=== PATIENT | female | born 1955 | race Caucasian/White ===

== ENCOUNTER 2017-02-21 16:15 | Emergency (ER) | payer BC, MEDICAID ==
--- NOTE | 2017-02-21 17:48 | RAD ---
INDICATION: Left ankle injury COMPARISON: Left ankle February 19, 2014 TECHNIQUE: AP, lateral, and oblique views were obtained. FINDINGS: There are acute fractures of the fibula 2 cm cephalad to prior fixation of the old distal fibular fracture. There are also anterior tibial and medial malleolar avulsion fractures. There is diffuse soft tissues swelling. No additional findings. IMPRESSION: ACUTE FIBULAR, MEDIAL MALLEOLAR, AND ANTERIOR TIBIAL FRACTURES.
[2017-02-21] MEDS ORDERED: Acetaminop/Codeine 30 MG TAB* 1 TAB (300 MG/30 MG) PO ONE (18:05)
--- NOTE | 2017-02-21 18:07 | ED ---
Lower Extremity - HPI Summary HPI Summary: 61F presents with left ankle pain s/p twisting it when going down stairs. She has previous plate placed 3 years ago at [facility]. She denies any other injury. She denies any numbness or tingling. She has not taken anything for pain. She is unable to walk on the joint. She is not on any blood thinners. Pain is greatest on lateral aspect of ankle. - History of Current Complaint Chief Complaint: EDExtremityLower Stated Complaint: FALL Time Seen by Provider: 02/21/17 17:17 Pain Intensity: 8 - Allergies/Home Medications Allergies/Adverse Reactions: Allergies Allergy/AdvReac Type Severity Reaction Status Date / Time No Known Allergies Allergy Verified 02/21/17 16:23 PMH/Surg Hx/FS Hx/Imm Hx Endocrine/Hematology History: Denies: Hx Anticoagulant Therapy, Hx Diabetes Cardiovascular History: Reports: Hx Hypertension - ON MEDS STARTED TODAY Denies: Other Cardiovascular Problems/Disorders Respiratory History: Denies: Other Respiratory Problems/Disorders GI History: Denies: Other GI Disorders Musculoskeletal History: Denies: Other Musculoskeletal History Sensory History: Reports: Hx Cataracts - SARIKA Denies: Hx Contacts or Glasses, Hx Hearing Aid Opthamlomology History: Reports: Hx Cataracts - SARIKA Denies: Hx Contacts or Glasses Neurological History: Reports: Hx Migraine - INFREQUENT Denies: Other Neuro Impairments/Disorders Psychiatric History: Reports: Hx Anxiety - ON MEDS, Hx Depression - ON MEDS - Surgical History Surgery Procedure, Year, and Place: RIGHT CATARACT, 01/2014, [facility] [place]. HYSTERECTOMY 1997, [place]. BOWEL RESECTION 1998, [place]. Hx Anesthesia Reactions: Yes - DIFF TO WAKE UP Infectious Disease History: No Infectious Disease History: Denies: Traveled Outside the [place] in Last 30 Days - Family History Known Family History: Positive: Cardiac Disease - Social History Alcohol Use: None Substance Use Type: Reports: None Smoking Status (MU): Never Smoked Tobacco Have You Smoked in the Last Year: No Review of Systems Negative: Fever Negative: Chest Pain Negative: Shortness Of Breath Positive: Myalgia - left ankle pain All Other Systems Reviewed And Are Negative: Yes Physical Exam Triage Information Reviewed: Yes Vital Signs On Initial Exam: Initial Vitals Temp Pulse Resp BP Pulse Ox 97.6 F 69 16 150/72 100 02/21/17 16:23 02/21/17 16:23 02/21/17 16:23 02/21/17 16:23 02/21/17 16:23 Vital Signs Reviewed: Yes Appearance: Positive: Well-Appearing Skin: Positive: Warm, Dry Head/Face: Positive: Normal Head/Face Inspection Eyes: Positive: Normal, Conjunctiva Clear Respiratory/Lung Sounds: Positive: Clear to Auscultation, Breath Sounds Present Cardiovascular: Positive: Normal, RRR Musculoskeletal: Positive: Strength/ROM Intact - toes and knee, Limited @ - left ankle, Edema Left - ankle, Other - good pulses capillary refill < 2 secs Procedures - Splinting Location: left ankle Hand-Made Type: fiberglass Splint: posterior walking Pre-Proc Neuro Vasc Exam: normal Post-Proc Neuro Vasc Exam: normal Diagnostics - Vital Signs Vital Signs Temp Pulse Resp BP Pulse Ox 02/21/17 16:26 97.6 F 69 16 150/72 100 02/21/17 16:23 97.6 F 69 16 150/72 100 - Laboratory Lab Statement: Any lab studies that have been ordered have been reviewed, and results considered in the medical decision making process. Lower Extremity Course/Dx - Course Course Of Treatment: 61F presents left ankle injury s/p tripped down some stairs. had surger on ankle with dr dean at [facility] three years.do not suspect compartment syndrome at moment: good pulses, capillary refill< 2, able to move toes, xray shows acute fibualar and atnerior tibial fracture. spoke with dr lebron will see in office on and will need surgery. placed in posterior splint. warn of signs of compartment syndrome to return. patient understands and agrees with plan - Diagnoses Differential Diagnosis/HQI/PQRI: Positive: Fracture (Closed), Sprain, Strain Provider Diagnoses: Ankle fracture - Physician Notifications Discussed Care Of Patient With: dr lebron Time Discussed With Above Provider: 19:00 - will see on and place in posterior with robbie Discharge - Discharge Plan Condition: Good Disposition: HOME Prescriptions: Acetaminop/Codeine 30 MG TAB* [Tylenol/Codeine 30 MG TAB*] 1 tab PO Q6H PRN #20 tab MDD 4 PRN Reason: Pain Patient Education Materials: Ankle Fracture (ED) Referrals: Non Staff,Doctor [Primary Care Provider] - Jaime Lebron MD [Medical Doctor] - Additional Instructions: Use crutches and stay nonweight bearing Keep splint on area and keep dry Call ortho office tomorrow to set up appointment time for with dr lebron or dr howe Use ibuprofen/tyenlol for pain every 6 hours and use narcotic for breakthrough pain Ice, elevate Return to ED if develop numbness or tingling or any new or worsening symptoms
[2017-02-21 19:44] VITALS: BP 130/62
== END 2017-02-21 20:07 | disposition home or self-care (01) ==
LOC: ED 16:15
DX: S82.892A Other fracture of left lower leg, initial encounter for closed fracture (principal); W10.9XXA Fall (on) (from) unspecified stairs and steps, initial encounter; Y93.9 Activity, unspecified; Y92.9 Unspecified place or not applicable; Y99.9 Unspecified external cause status
CPT/HCPCS: 99281; A9270-GY

== ENCOUNTER 2017-02-27 10:22 | Day surgery (SDC) | payer OTHER ==
[~2017-02-27 10:22] MED LIST: Buffered Lidocaine 0.9% SYRIN* 5 ML/SYR SYRINGE INTRADERM ONE; Famotidine IV* 10 MG/ML 2 ML (20 mg) IV ONE
[2017-02-27] MEDS ORDERED: Buffered Lidocaine 0.9% SYRIN* 5 ML/SYR SYRINGE ONE (10:27)
[2017-02-27] MEDS ORDERED: ceFAZolin 2 GM PREMIX(*) 0 GM/0 ML BAG IVPB ONE (10:27)
[2017-02-27] MEDS ORDERED: Famotidine IV* 10 MG/ML 2 ML (20 mg) ONE (10:27)
[2017-02-27] MEDS ORDERED: ceFAZolin 2 GM PREMIX(*) 2 GM/50 ML BAG IVPB ONE (11:19)
[2017-02-27] MEDS ORDERED: Midazolam* 1 MG/ML 5 ML VIAL (5 MG) ONE (11:25)
[2017-02-27] MEDS ORDERED: fentaNYL* 50 MCG/ML 2 ML VIAL (100 MCG VIAL) ONE (11:25)
[2017-02-27] MEDS ORDERED: Scopolamine 1.5 mg* PATCH TRANSDERM SCH (12:00)
[2017-02-27] MEDS ORDERED: Scopolamine 1.5 mg* PATCH ONE (12:02)
[2017-02-27] MEDS ORDERED: Propofol* 10 MG/ML 20 ML BTL IV PUSH ONE (12:04)
[2017-02-27] MEDS ORDERED: Lidocaine 2% PF * 5 ML VIAL ONE (12:04)
[2017-02-27] MEDS ORDERED: Ketorolac INJ* 30 MG/ML 1 ML VIAL ONE (12:04)
[2017-02-27] MEDS ORDERED: Ondansetron INJ* 2 MG/ML VIAL ONE (12:04)
[2017-02-27] MEDS ORDERED: DiMENhydriNATE IV* 50 MG/ML VIAL ONE (12:04)
[2017-02-27] MEDS ORDERED: Dexamethasone IV* 4 MG/ML 1 ML (4 MG) ONE (12:04)
[2017-02-27] MEDS ORDERED: Bupivacaine 0.5% SDV PF* 30 ML VIAL ONE (12:38)
[2017-02-27] MEDS ORDERED: HYDROmorphone* 1 MG/ML 1 ML SYR ONE ×2 (13:26→15:28)
[2017-02-27] MEDS ORDERED: oxyCODONE/Acetamin 5/325 MG* TAB PO PRN (14:49)
[2017-02-27] MEDS ORDERED: DiMENhydriNATE IV* 50 MG/ML VIAL IV PUSH PRN (14:49)
[2017-02-27] MEDS ORDERED: Acetaminop/Codeine 30 MG TAB* 1 TAB (300 MG/30 MG) ONE (15:24)
[2017-02-27] MEDS: HYDROmorphone* 1 MG/ML 1 ML SYR IV PRN ×3 (15:28→15:53)
[2017-02-27 17:31] VITALS: BP 120/64
--- NOTE | 2017-02-28 16:13 | OP ---
DATE OF OPERATION: 02/27/17 [facility] DATE OF : 59 SURGEON: Naman Esquivel MD CREATIVE COORDINATOR: Reyna Diaz PA-C ANESTHESIOLOGIST: Beth De La Paz MD ANESTHESIA: General PRE-OPERATIVE DIAGNOSIS: Displaced left bimalleolar ankle fracture. POST-OPERATIVE DIAGNOSIS: Displaced left bimalleolar ankle fracture. OPERATIVE PROCEDURE: Removal of left fibular plate, revision plate fixation left fibula and internal fixation left medial malleolus. DESCRIPTION OF PROCEDURE: The patient was taken to the operating room where a longitudinal incision was made along the distal left fibula. 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 The new fracture was 3 cm above this, so we extended the wound proximally to allow a 12-hole Recon plate on the posterior lateral aspect of the fibula. We had 8 cortices above the fracture. This was an anatomic reduction. This wound was then irrigated and closed with Vicryl and binh for the skin. A longitudinal incision was made at the medial malleolus, which at this point then was minimally displaced. We pinned the medial malleolus under compression using paired partially threaded cancellous screws, one with a washer. X-rays done intraoperatively showed satisfactory position of both malleoli and the hardware. We then irrigated the medial wound also closing with Vicryl and binh and a compression dressing plaster splint applied. [id number] #: [id number] MTDD
== END 2017-02-27 18:43 | disposition home or self-care (01) ==
LOC: OR 10:22
PROVIDERS: ATTEND Orthopaedic Surgery
DX: S82.842A Displaced bimalleolar fracture of left lower leg, initial encounter for closed fracture (principal); W10.9XXA Fall (on) (from) unspecified stairs and steps, initial encounter; Y92.9 Unspecified place or not applicable; Z47.2 Encounter for removal of internal fixation device; F41.9 Anxiety disorder, unspecified; F32.9 Major depressive disorder, single episode, unspecified; E78.00 Pure hypercholesterolemia, unspecified; Z87.81 Personal history of (healed) traumatic fracture
CPT/HCPCS: 88300; A9270-GY; C1713; C1776; J0690; J1100; J1170; J1240; J1885; J2250; J2405; J2704; J3010